=== PATIENT | male | born 1965 ===

== ENCOUNTER → 2017-07-10 | Outpatient (CLI) | payer OTHER ==
[~2017-07-10] VITALS: Ht 188 cm; Wt 130.9 kg
[~2017-07-10] MED LIST: ACET325T45 PO; AMLO-147 PO; DEXA4TAB PO; FAMO20TA18 PO; GEMF600T60 PO; LEVE500T8 PO
[2017-07-10 14:55] VITALS: BP 141/97; PULSE 96; RESP 18; Ht 188 cm; Wt 130.9 kg
--- NOTE | 2017-07-10 15:34 | PN ---
Date/Time of Note Date/Time of Note DATE: 07/10/17 TIME: 15:28 Outpatient Progress Note Chief Complaint GBM/craniotomy/labile hypertension/anemia/ HPI This 52-year-old gentleman known to have GBM, patient had recent craniotomy, patient had large mass in the left hemisphere, which indicated recurrent tumor GBM, patient had surgery, patient doing very well, patient still has expressive aphasia, and weakness of left upper extremity, Patient denies any dizziness, mild headache, no seizure disorder, patient on Keppra, patient has slight slurred speech, minimal cough on swallowing saliva, or eating, patient denies any fever chill, Review of Systems Const: No Fever, no chills, no Wt. loss, no Fatigue, normal appetite, no diaphoresis. Slightly obese, Eyes: No pain, no discharge, no redness, no visual change, no foreign body. ENT: No pain, no bleeding, no congestion, no sore throat, no dysphagia, no discharge or rhinitis. Lymph: No adenopathy, no tender nodes, no lymphedema. Resp: No SOB, minimal cough, no sputum, no wheezing, no chest pain. CV: No chest pain, no palpitaions, no BRIAN, no PND, no edema. GI: Normal appetite, no pain, no nausea, no vomiting, no diarrhea, no blood, no constipation. : No frequency, no urgency, no dysuria, no hematuria, no flank pain, no discharge, no bleeding. Musc: No back pain, no neck pain, no knee pain, no restricted ROM. Skin: No rash, no skin lesions, no erythema, no laceration, no bruising, no pruritus. Neuro: Mild SAHU, no dizziness, no syncope, no seizure expressive aphasia,, left upper extremity slight weakness, Endo: No polyuria, no polydypsia, no dry-skin, no temp-intolerance. Psych: No hallucinations, no depression, no anxiety, no suicidal ideation. Ext: No edema, no pain, no ulcer, left upper extremity slight weakness, Physical Exam Vital Signs Date Time Temp Pulse Resp B/P Pulse Ox O2 Delivery O2 Flow Rate FiO2 07/10/17 14:55 97.9 96 18 141/97 95 Room Air General Appearance: A 52 year-old male who appears well-developed, well- nourished, in no acute distress morbidly obese, HEENT: Head normocephalic, atraumatic. Pupils equal, round, reactive to light and accommodate. Sclerae are no jaundice. Nasal turbinates pink without erythema or nasal discharge. Mucous membranes pink and moist without lesions. Oropharynx clear without any exudate or discharge. NECK: Supple. Trachea midline, No thyromegaly, No cervical lymphadenopathy, No mass, No carotid bruits, No JVD, Carotid pulses 2+ bilaterally. PULMONARY: Clear to auscultaion bilaterally, No retractions, Chest expansion symmetric bilaterally, no rales, no ronchi, no dulness on percussion. CARDIAC: Normal SI and S2, Regular rate and rythm, no murmur, gallop, or rub. GASTROINTESTINAL: Abdomen is soft, non-tender, Non Rigid, No distention, Positive bowel sounds x4 quadrants, Liver normal. SKIN: Warm, dry, no rash, no bruise, no echmosis. EXTREMITIES: Bilateral lower extremities normal, no edema, no phlabitus, pulse palpable, no contracture. MUSCULOSKELETAL: Spine Normal, Non-tender, Normal range of motion, No swelling, no deformity, no clubbing, or cyanosis, the patient has no edema to bilateral lower extremities, dorsalis pedis pulses palpable bilaterally. NEUROLOGIC: The patient is awake, alert, oriented, status post left-sided craniotomy, responding to yes/no questions appropriately, moving all extremities , cranial nerve intact, normal strenght, normal power, normal coordination, on the right side, and left side left upper extremity weakness, more than lower, normal gait. Allergies Coded Allergies: No Known Drug Allergies (Verified Allergy, Unknown, 07/10/17) PMH GBM/craniotomy/labile hypertension/anemia Social Hx No smoking or drinking, Family Hx Noncontributory, Assessment/Plan Impression GBM/left hemisphere large mass, recurrence of tumor GBM Craniotomy Labile hypertension Anemia Expressive aphasia Plan Patient education done, patient information about his condition, Patient is slight coughing, discussed with the patient to be careful while eating and drinking, and avoid aspiration, and if lot of coughing then the patient instructed to slow down eating and check with the physician, Patient also need oncologist, patient will be referred to hematology oncology, Patient has all medication, no need for refill, Medications Home Meds Reported Medications Levetiracetam* (Levetiracetam*) 500 Mg Tablet, 500 MG PO BID, TAB 07/10/17 Gemfibrozil* (Gemfibrozil*) 600 Mg Tablet, 600 MG PO BID, TAB 07/10/17 Famotidine* (Famotidine*) 20 Mg Tablet, 20 MG PO BID, #60 TAB 07/10/17 Dexamethasone* (Dexamethasone*) 4 Mg Tablet, 4 MG PO BID, TAB 07/10/17 Amlodipine Besylate* (Amlodipine Besylate*) 10 Mg Tablet, 10 MG PO DAILY, #30 TAB 07/10/17 Acetaminophen* (Acetaminophen*) 325 Mg Tablet, 325 MG PO Q4H Y for PAIN, #30 TAB 07/10/17 NASEEM FAUSTIN MD Jul 10, 2017 15:34
== END | disposition home or self-care (01) ==
LOC: DCC 14:45
PROVIDERS: ATTEND Internal Medicine
DX: C71.9 Malignant neoplasm of brain, unspecified (principal); I10 Essential (primary) hypertension; D64.9 Anemia, unspecified; R47.01 Aphasia